=== PATIENT | female | born 1975 ===

== ENCOUNTER → 2018-08-02 | Outpatient (CLI) | payer OTHER ==
[~2018-08-02] MED LIST: Zofran Odt4 MG SL
[2018-08-02 13:55] LABS: Source, Urine Clean Catch
[2018-08-02 14:15] LABS: Appearance, Urine Hazy (Clear); Bilirubin, Urine Neg (Neg); Blood, Urine 5+ (Neg); Color, Urine Yellow (P-Yellow); Glucose Qualitative, Urine Neg (Neg); Ketones, Urine Neg (Neg); Leukocyte Esterase, Urine 1+ (Neg); Nitrite, Urine Neg (Neg); Protein, Urine Neg (Neg); Specific Gravity, Urine 1.005 (1.003-1.022); Urobilinogen, Urine NORM (Normal); pH, Urine 6.5 (5.0-8.0)
[2018-08-02 14:39] LABS: Squamous Epithelial Cells Mod /hpf (Few); White Blood Cells, Urine 0-2 /hpf (0-5)
[2018-08-02 14:40] LABS: Bacteria Rare /hpf
== END | disposition home or self-care (01) ==
LOC: EDSTATUS 10:52 → LAB 13:53 → LAB SHORT 13:53
PROVIDERS: Internal Medicine
DX: N39.0 Urinary tract infection, site not specified (principal)
CPT/HCPCS: 81001; 87086

== ENCOUNTER 2019-04-25 11:01 | Day surgery (SDC) | payer OTHER ==
[~2019-04-25] VITALS: Ht 160 cm; Wt 78.9 kg
[~2019-04-25 11:01] MED LIST changes: +NAPR500 PO
== END 2019-04-25 13:33 | disposition home or self-care (01) ==
LOC: ORSCSDS 11:01
PROVIDERS: Obstetrics & Gynecology
PROC: 0UDB8ZX Extraction of Endometrium, Via Natural or Artificial Opening Endoscopic, Diagnostic (ICD-10-PCS; principal; 2019-04-25 12:00)
DX: R93.5 Abnormal findings on diagnostic imaging of other abdominal regions, including retroperitoneum (principal); N85.01 Benign endometrial hyperplasia; N93.8 Other specified abnormal uterine and vaginal bleeding; E66.9 Obesity, unspecified; Z68.30 Body mass index [BMI] 30.0-30.9, adult; Z79.899 Other long term (current) drug therapy
CPT/HCPCS: 88305; J1100; J2250; J2405; J2704; J3010; J7120

== ENCOUNTER 2019-05-31 15:45 | Inpatient (IN) | payer OTHER ==
[~2019-05-31] VITALS: Ht 160 cm; Wt 79.9 kg
--- NOTE | 2019-06-05 06:19 | NUR ---
History, Chart, Medications and Allergies reviewed before start of procedure. Patient confirms NPO status and agrees with scheduled surgery. Patient reports hx of tubal ligation. No HCG indicated.
--- NOTE | 2019-06-05 08:40 | NUR ---
06/05/19 0840 Crista Zaman CATH AND VAG PREP DONE BY ORD.MES.
--- NOTE | 2019-06-05 18:48 | NUR ---
SHIFT SUMMARY PT HAS BEEN DROWSY AND NAUSEATED POST OP. EMESIS x 1. IVF INFUSING. ONLY TAKING ICE CHIPS AND TRIED BITES OF ICE CREAM BUT NOW FEELS LIKE SHE IS TRYING NOT TO THROW UP. PT AGREEABLE TO AMBULATE AFTER THIS FEELING PASSES. MEDICATED WITH ANTIEMETICS AND DECLINED COOL WASHCLOTH.
--- NOTE | 2019-06-06 05:29 | NUR ---
SHIFT SUMMARY: TIM IS POD1 FOR A PAULINA. VSS, NO ACUTE EVENTS. LOW TRANSVERSE INCISION CLEAN/DRY AND INTACT, ABDOMINAL BINDER IN PLACE. KATRIN PAD WITH SCANT DRAINAGE. SHE DID GET UP, WALK APPROX 10 FT AND SIT IN A CHAIR FOR A SHORT TIME LAST NIGHT. SHE REPORTS THAT HER N&V IS SIGNIFICANTLY IMPROVED THIS MORNING. IV PATENT. SHE REPORTS THAT THE CRAMPING SHE FELT LAST NIGHT HAS NOW RESOLVED. SHE IS LYING IN BED WITH HER CALL LIGHT IN REACH. WILL REPORT TO DAY SHIFT RN.
[2019-06-06 05:45] LABS: BASOPHILS ABSOLUTE AUTO 0.01 K/mm3 (0.00-0.23); BASOPHILS PERCENT AUTO 0 % (0-2); EOSINOPHILS PERCENT AUTO 0 % (0-6); Hematocrit 35.5 % (33.0-51.0); Hemoglobin 11.6 g/dL (11.5-16.0); IMMATURE GRAN ABSOLUTE AUTO 0.05 K/mm3 (0.00-0.10); IMMATURE GRAN PERCENT AUTO 0 % (0-1); LYMPHOCYTES ABSOLUTE AUTO 1.92 K/mm3 (0.84-5.20); LYMPHOCYTES PERCENT AUTO 16 % (21-46); MONOCYTES PERCENT AUTO 7 % (4-13); Mean Corpuscular HGB 29.5 pg (26.0-34.0); Mean Corpuscular HGB Conc 32.7 g/dL (31.5-36.5); Mean Corpuscular Volume 90 fL (80-100); Mean Platelet Volume 10.6 fL (9.1-12.4); NEUTROPHILS ABSOLUTE AUTO 9.49 K/mm3 (1.96-9.15); NEUTROPHILS PERCENT AUTO 77 % (41-73); Platelet Count 232 K/mm3 (150-400); RDW Coefficient Variation 12.7 % (11.7-14.2); RDW Standard Deviation 42.4 fL (35.1-46.3); Red Blood Cell Count 3.93 M/mm3 (3.80-5.20); White Blood Cell Count 12.27 K/mm3 (4.00-11.30)
--- NOTE | 2019-06-06 15:16 | NUR ---
PT DESIRES TO BE DISCHARGED VOIDING AND PASSING FLATUS. AMBULATING IN ROOM AND HALLWAYS INDEPENDENTLY. TOLERATING PO AND PAIN CONTROLLED PER PO MEDS.
[2019-06-06] MEDS ORDERED: Percocet 5-3251 EACH PO (15:37)
[2019-06-06] MEDS ORDERED: IBUP800 PO (15:39)
--- NOTE | 2019-06-06 16:56 | NUR ---
discharged PT DC'D. DC'D IV, CATHETER INTACT. REVIEWED DC PAPERWORK W/PT WHO VERBALIZED UNDERSTANDING. PT LEFT UNIT IN WC W/POSSESSIONS AND DC PAPERWORK IN HAND, ACCOMPANIED BY FAMILY.
== END 2019-06-06 16:45 | disposition home or self-care (01) | DRG 743 ==
LOC: SURS 06-05 05:59 → PRE IP 06-05 07:30 → SURS 06-05 10:34
PROVIDERS: ADMIT Obstetrics & Gynecology
PROC: 0UT90ZZ Resection of Uterus, Open Approach (ICD-10-PCS; principal; 2019-06-05 07:30)
PROC: 0UT70ZZ Resection of Bilateral Fallopian Tubes, Open Approach (ICD-10-PCS; 2019-06-05 07:30)
PROC: 0UB10ZZ Excision of Left Ovary, Open Approach (ICD-10-PCS; 2019-06-05 07:30)
PROC: 0UB00ZX Excision of Right Ovary, Open Approach, Diagnostic (ICD-10-PCS; 2019-06-05 07:30)
DX: N85.01 Benign endometrial hyperplasia (principal); N83.202 Unspecified ovarian cyst, left side; N83.9 Noninflammatory disorder of ovary, fallopian tube and broad ligament, unspecified
CPT/HCPCS: 36415; 85025; 88108; 88307; J0690; J1100; J1885; J2250; J2405; J2704; J2710; J3010; J7040; J7120

== ENCOUNTER → 2022-01-28 | Outpatient (CLI) | payer OTHER ==
[~2022-01-28] MED LIST changes: +IBUP800 PO; +Percocet 5-3251 EACH PO
== END | disposition home or self-care (01) ==
LOC: LAB 12:00 → LAB SHORT 12:00
DX: H66.92 Otitis media, unspecified, left ear (principal); H72.92 Unspecified perforation of tympanic membrane, left ear; T16.2XXA Foreign body in left ear, initial encounter
CPT/HCPCS: 87070; 87205